=== PATIENT | male | born 1970 | race Caucasian/White ===

== ENCOUNTER 2017-09-13 13:04 | Emergency (ER) | payer MEDICAID, SELFPAY | END 2017-09-13 14:32 | disposition home or self-care (01) | PROVIDERS: Emergency Provider Nurse Practitioner; Visit Provider Nurse Practitioner | DX: J10.1 Influenza due to other identified influenza virus with other respiratory manifestations (principal); I10 Essential (primary) hypertension; K21.9 Gastro-esophageal reflux disease without esophagitis | CPT/HCPCS: 87804; 87880; 99201 ==

== ENCOUNTER → 2018-01-07 14:29 | Outpatient (CLI) | payer MEDICAID, SELFPAY ==
[2018-01-10 12:06] LABS: H. pylori Breath Test Positive (Negative)
== END ==
PROVIDERS: Visit Provider Physician Assistant
DX: R14.0 Abdominal distension (gaseous) (principal)
CPT/HCPCS: 83013

== ENCOUNTER → 2018-01-10 09:52 | Outpatient (REF) | payer MEDICAID, SELFPAY ==
[2018-01-10 13:56] LABS: Magnesium 1.8 mg/dL (1.4-2.2)
[2018-01-10 14:09] LABS: Alanine Aminotransferase 106 U/L (12-78); Albumin Level 3.5 gm/dL (3.4-5.0); Alkaline Phosphatase 74 U/L (46-116); Anion Gap 11.9 mEq/L (5-15); Aspartate Amino Transferase 38 U/L (15-37); Bilirubin,Total 0.6 mg/dL (0.2-1.0); Blood Urea Nitrogen 21 mg/dL (7-18); Calcium 9.2 mg/dL (8.5-10.1); Carbon Dioxide 32 mmol/L (21.0-32.0); Chloride 96 mmol/L (98-107); Chol/HDL Ratio 4.1 (1-3.5); Cholesterol 159 mg/dL (140-200); Creatinine,Serum 1.06 mg/dL (0.70-1.30); Estimated Glomerular Filt Rate 74 ml/min (>60); GFR (African American) 90 ML/MIN (>60); Globulin 3.5 gm/dl (1.3-3.2); HDL Cholesterol 39 mg/dL (27-67); LDL Cholesterol 94 mg/dL (0-130); Potassium 3.9 mmoL/L (3.5-5.1); Sodium 136 mmol/L (136-145); T4 (Thyroxine) 8.9 ug/dl (4.7-13.3); Thyroid Stimulating Hormone 1.64 uIU/ml (0.358-3.740); Triglycerides 130 mg/dL (30-200); VLDL Cholesterol 26 mg/dL (0-40)
[2018-01-10 14:20] LABS: Basophils # 0.1 K/mm3 (0-0.2); Basophils % 0.7 % (0.1-2.0); Eosinophils # 0.2 K/mm3 (0.0-0.4); Eosinophils % 1.6 % (0.1-12.0); Hematocrit 49.5 % (42.0-52.0); Hemoglobin 16.2 g/dL (14.1-18.0); Lymphocytes # 3.5 K/mm3 (0.7-4.5); Lymphocytes % 27.6 K/mm3 (10-50); Mean Corpuscular HGB Conc 32.8 g/dL (31.8-35.4); Mean Corpuscular Hemoglobin 28.3 pg (27.0-31.2); Mean Corpuscular Volume 86.4 fl (80-94); Monocytes # 0.7 K/mm3 (0.1-1.0); Monocytes % 5.9 % (1.7-9.3); Neutrophils # 8.1 K/mm3 (1.8-7.8); Neutrophils % 64.2 % (37.0-80.0); Platelet Count 257 K/mm3 (142-424); Red Blood Count 5.72 M/mm3 (4.60-6.20); Red Cell Distribution Width 12.2 % (11.5-17.5); White Blood Count 12.6 K/mm3 (4.8-10.8)
[2018-01-10 14:24] LABS: Glucose 403 mg/dL (74-106)
[2018-01-11 11:06] LABS: Vitamin D 25 Hydroxy 25.7 ng/mL (30.0-100.0)
== END ==
LOC: LAB 09:52
PROVIDERS: Visit Provider Physician Assistant
DX: R53.83 Other fatigue (principal); M79.606 Pain in leg, unspecified; R73.09 Other abnormal glucose
CPT/HCPCS: 80053; 80061; 82652; 83036; 83735; 84436; 84443; 85025

== ENCOUNTER → 2018-02-07 12:57 | Outpatient (CLI) | payer MEDICAID, SELFPAY | PROVIDERS: Family Provider Emergency Medicine; PCP Emergency Medicine; Visit Provider Physician Assistant | DX: E11.9 Type 2 diabetes mellitus without complications (principal) | CPT/HCPCS: 97802; G0108 ==

== ENCOUNTER → 2018-04-29 10:13 | Outpatient (CLI) | payer OTHER, MEDICAID, SELFPAY ==
--- NOTE | 2018-04-29 10:18 | XR_ITS ---
EXAM: XR lumbar spine min 4V HISTORY: ITS.REASON: low back pain ORDERING PHYSICIAN: SABRINA Sanchez PATIENT AGE: 47 years COMPARISON: 01/31/2016 FINDINGS: There is normal alignment. Mild spurring is present of the endplates at L1, L2, L4, and L5. No fracture or dislocation. No lytic or blastic change. There is mild chronic wedging of T12 and L1 unchanged. IMPRESSION: Chronic changes with mild endplate osteophytosis, no acute finding
--- NOTE | 2018-04-29 10:18 | XR_ITS ---
XR hip RT 2-3V w/pelvis HISTORY: ITS.REASON: right sciatic pain ORDERING PHYSICIAN: SABRINA Sanchez PATIENT AGE: 47 years COMPARISON: None FINDINGS: There is slight decrease in the joint space medially consistent mild osteoarthritis. No fracture or dislocation. No lytic or blastic change. IMPRESSION: Mild osteoarthritis of the right hip
== END ==
PROVIDERS: PCP Physician Assistant; Visit Provider Physician Assistant
DX: M54.5 Low back pain (principal)
CPT/HCPCS: 72110; 73502

== ENCOUNTER 2018-07-11 13:00 | Outpatient (RCR) | payer OTHER, SELFPAY ==
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
== END 2018-07-11 13:01 | disposition home or self-care (01) ==
LOC: PT 13:00
PROVIDERS: Family Provider Emergency Medicine; PCP Emergency Medicine; Visit Provider Physician Assistant
DX: M54.31 Sciatica, right side (principal)
CPT/HCPCS: 97010; 97012; 97014; 97035; 97110; 97163; 97164; G0283

== ENCOUNTER → 2018-07-31 10:46 | Outpatient (CLI) | payer MEDICAID, SELFPAY ==
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
== END ==
PROVIDERS: PCP Physician Assistant; Visit Provider Physician Assistant
DX: M54.2 Cervicalgia (principal)
CPT/HCPCS: 72050

== ENCOUNTER 2018-08-09 10:00 | Outpatient (RCR) | payer OTHER, MEDICAID, SELFPAY ==
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
== END 2018-08-09 10:05 | disposition home or self-care (01) ==
LOC: PT 10:00
PROVIDERS: Family Provider Emergency Medicine; PCP Physician Assistant; Visit Provider Physician Assistant
DX: M54.2 Cervicalgia (principal); M54.9 Dorsalgia, unspecified
CPT/HCPCS: 97010; 97012; 97014; 97035; 97110; 97163; G0283

== ENCOUNTER → 2019-09-08 13:33 | Outpatient (CLI) | payer OTHER, SELFPAY ==
[2019-09-08 14:05] LABS: Basophils # 0.1 K/mm3 (0-0.2); Basophils % 0.6 % (0.1-2.0); Eosinophils # 0.3 K/mm3 (0.0-0.4); Eosinophils % 2.2 % (0.1-12.0); Hematocrit 50.7 % (42.0-52.0); Hemoglobin 16.5 g/dL (14.1-18.0); Lymphocytes # 3.8 K/mm3 (0.7-4.5); Lymphocytes % 28.9 % (10-50); Mean Corpuscular HGB Conc 32.5 g/dL (31.8-35.4); Mean Corpuscular Hemoglobin 27.6 pg (27.0-31.2); Mean Corpuscular Volume 84.8 fl (80-94); Mean Platelet Volume 8.5 fl (7.4-10.4); Monocytes % 7.5 % (1.7-9.3); Neutrophils # 8.1 K/mm3 (1.8-7.8); Neutrophils % 60.9 % (37.0-80.0); Platelet Count 296 K/mm3 (142-424); Red Blood Count 5.98 M/mm3 (4.60-6.20); White Blood Count 13.2 K/mm3 (4.8-10.8)
[2019-09-08 14:26] LABS: Albumin Level 3.7 gm/dL (3.4-5.0); Anion Gap 13.9 mEq/L (5-15); Blood Urea Nitrogen 20 mg/dL (7-18); Calcium 8.9 mg/dL (8.5-10.1); Carbon Dioxide 29 mmol/L (21.0-32.0); Chloride 100 mmol/L (98-107); Creatinine,Serum 0.99 mg/dL (0.70-1.30); Estimated Glomerular Filt Rate 80 ml/min (>60); GFR (African American) 97 ML/MIN (>60); Glucose 176 mg/dL (74-106); Potassium 3.9 mmoL/L (3.5-5.1); Sodium 139 mmol/L (136-145)
[2019-09-08 15:03] LABS: Alanine Aminotransferase 52 U/L (12-78); Alkaline Phosphatase 66 U/L (46-116); Aspartate Amino Transferase 19 U/L (15-37); Bilirubin,Total 0.4 mg/dL (0.2-1.0); Chol/HDL Ratio 2.7 (1-3.5); Cholesterol 118 mg/dL (140-200); Globulin 3.6 gm/dl (1.3-3.2); HDL Cholesterol 43 mg/dL (27-67); LDL Cholesterol 55 mg/dL (0-130); Thyroid Stimulating Hormone 0.95 uIU/ml (0.358-3.740); Total Protein,Serum 7.3 gm/dL (6.4-8.2); Triglycerides 98 mg/dL (30-200); VLDL Cholesterol 20 mg/dL (0-40)
[2019-09-08 15:57] LABS: Hemoglobin A1C 7.5 % (0.0-7.0)
[2019-09-09 16:46] LABS: Vitamin D 25 Hydroxy 46.7 ng/mL (30.0-100.0)
[2019-09-09 16:47] LABS: Microalbumin, Urine 9.3 ug/mL (Not Estab.)
== END ==
PROVIDERS: Visit Provider Physician Assistant
DX: E11.9 Type 2 diabetes mellitus without complications (principal); E55.9 Vitamin D deficiency, unspecified; Z79.84 Long term (current) use of oral hypoglycemic drugs
CPT/HCPCS: 80053; 80061; 82043; 82652; 83036; 84436; 84443; 85025

== ENCOUNTER → 2019-11-27 19:58 | Outpatient (CLI) | payer OTHER, SELFPAY | PROVIDERS: PCP Physician Assistant; Visit Provider Physician Assistant | DX: G47.33 Obstructive sleep apnea (adult) (pediatric) (principal); I10 Essential (primary) hypertension; R40.0 Somnolence; G25.81 Restless legs syndrome | CPT/HCPCS: 95810 ==

== ENCOUNTER → 2019-12-09 09:56 | Outpatient (CLI) | payer OTHER, SELFPAY ==
[2019-12-09 12:54] LABS: Ferritin 165 ng/ml (17.9-464)
== END ==
PROVIDERS: Visit Provider Nurse Practitioner Family
DX: E83.10 Disorder of iron metabolism, unspecified (principal)
CPT/HCPCS: 36415; 82728

== ENCOUNTER 2020-08-03 18:11 | Emergency (ER) | payer OTHER, SELFPAY ==
[2020-08-03 18:20] VITALS: BP 143/91; PULSE 88; RESP 18; TEMP 36.8; O2SAT 96; BMI 39.5
--- NOTE | 2020-08-03 19:06 | HMH.EDUTC ---
[facility] [place] Clinical Impression: Encounter for laboratory testing for COVID-19 virus Disposition: Home, Self-Care Condition on Discharge: Good Instructions: Preventing the Spread of Coronavirus Discharge Instructions Additional Instructions: *Monitor Temp, Over the counter Motrin or Tylenol as directed/as needed Tylenol every 4 hours and Motrin every 6 hours (as long as your family doctor has told you that you can take it) for fever or pain. and straight to ER if unable to lower temp less than 101.0 after medication given *Warm salt water gargles may help to soothe the throat *Throat Lozenges *Warm fluids like tea with honey may help to soothe the throat *Sleep elevated *Humidifier/Vaporizer Follow up IMMEDIATELY for new or worsening symptoms or no Noticeable improvement over the next 48-72 hours. 911 for difficulty breathing or swallowing You was tested for today for COVID19 your test result should be back in the next 24-48 hours, you may call to the [facility] tomorrow to see if your test results are back and the result [phone] You was given a handout with instructions for Self Quarantine and Self isolation for while you wait on test results and what to do if they are positive If you are positive the Health Dept will be contacting you also Referrals: Nancy Mendes PA [Primary Care Provider] - As needed Forms: Work/School Release Time of Disposition: 19:08 Medical Decision Making - Hair Inquiry Pt receiving controlled substance: No Hair was queried for this patient: No Vital Signs: 08/03/20 18:20 Temperature 98.2 F Temperature Source Oral Pulse Rate [Left] 88 Respiratory Rate 18 Blood Pressure [Right Arm] 143/91 H Blood Pressure Mean [Right Arm] 108 Blood Pressure Source [Right Arm] Automatic Cuff Blood Pressure Position [Right Arm] Sitting 02 Sat by Pulse Oximetry 96 Oxygen Delivery Method Room Air Orders (Tests/Meds): ORDERS Category Date Time Status Covid-19 Nasal PCR Sendout Tho Stat Lab 08/03/20 18:50 Received [facility] [place] HPI - General Stated complaint: COVID TEST Time Seen by Provider: 08/03/20 19:06 Source of Information: Patient Limitations: No Limitations Description of Symptoms (Recalled from Triage Doc. by RN): Covid test no exposure no symptoms HEENT Symptoms (Recalled from RN notes): No Resp Symptoms (Recalled from RN notes): No Skin Symptoms (Recalled from RN notes): No MS Symptoms (Recalled from RN notes): No Functional Status (Recalled from RN notes): stable - History of Present Illness Provider Complaint: Patient states that his daughters boyfriend recently tested positive for COVID but he hasnt been around the boyfriend but has been around the daughter States that he has had a cough but sometimes his allergies acts up and he has a cough States that he come in to get tested to see if may have COVID - Related Data Previous Rx's Medication Instructions Recorded aspirin 81 mg tablet,delayed 81 mg PO DAILY #90 tab 09/08/19 release blood sugar diagnostic See Rx Instructions .ROUTE 09/08/19 .COMPLEX #50 unspecified blood-glucose meter See Rx Instructions .ROUTE 09/08/19 .COMPLEX #1 unspecified atorvastatin 10 mg tablet See Rx Instructions .ROUTE 12/08/19 .COMPLEX #90 unspecified pramipexole 0.125 mg tablet See Rx Instructions .ROUTE 12/08/19 .COMPLEX #90 unspecified ergocalciferol (vitamin D2) 1,250 See Rx Instructions .ROUTE 02/24/20 mcg (50,000 unit) capsule .COMPLEX #14 unspecified lisinopril 20 See Rx Instructions .ROUTE 05/05/20 mg-hydrochlorothiazide 25 mg tablet .COMPLEX #90 unspecified glipizide 10 mg tablet, extended See Rx Instructions .ROUTE 05/19/20 release 24 hr .COMPLEX #90 unspecified omeprazole 40 mg capsule,delayed See Rx Instructions .ROUTE 05/19/20 release .COMPLEX #90 unspecified Allergies Allergy/AdvReac Type Severity Reaction Status Date / Time Penicillins [PENICILLINS] Allergy Unknown Verified 12/09/19 08:57
[2020-08-03 19:27] VITALS: BP 143/91; PULSE 88; RESP 18; TEMP 36.8; O2SAT 96
[2020-08-05 16:55] LABS: Covid-19 Nasal PCR Sendout Lex Positive
--- NOTE | 2020-08-05 17:10 | PC.NURSE ---
PATIENT NOTIFIED OF POSITIVE COVID TEST AT THIS TIME
== END 2020-08-03 19:27 | disposition home or self-care (01) ==
PROVIDERS: Emergency Provider Nurse Practitioner; PCP Physician Assistant
DX: U07.1 COVID-19 (principal); E11.9 Type 2 diabetes mellitus without complications; I10 Essential (primary) hypertension; Z88.0 Allergy status to penicillin; Z79.899 Other long term (current) drug therapy
CPT/HCPCS: 99201; U0004

== ENCOUNTER → 2021-02-22 13:51 | Outpatient (CLI) | payer MEDICAID, SELFPAY | PROVIDERS: Visit Provider Emergency Medicine | DX: N39.0 Urinary tract infection, site not specified (principal) | CPT/HCPCS: 87086 ==

== ENCOUNTER → 2021-06-07 12:07 | Outpatient (CLI) | payer MEDICAID, SELFPAY | PROVIDERS: PCP Physician Assistant; Visit Provider Nurse Practitioner | DX: Z20.822 Contact with and (suspected) exposure to COVID-19 (principal) | CPT/HCPCS: C9803; U0003; U0005 ==

== ENCOUNTER → 2021-07-27 17:12 | Outpatient (CLI) | payer MEDICAID, SELFPAY ==
[2021-07-27 17:22] LABS: Basophils # 0.1 K/mm3 (0-0.2); Basophils % 0.9 % (0.1-2.0); Eosinophils # 0.2 K/mm3 (0.0-0.4); Eosinophils % 1.9 % (0.1-12.0); Hematocrit 53.3 % (42.0-52.0); Hemoglobin 17.7 g/dL (14.1-18.0); Lymphocytes # 3.2 K/mm3 (0.7-4.5); Lymphocytes % 27.1 % (10-50); Mean Corpuscular HGB Conc 33.1 g/dL (31.8-35.4); Mean Corpuscular Hemoglobin 28.3 pg (27.0-31.2); Mean Corpuscular Volume 85.5 fl (80-94); Mean Platelet Volume 9.2 fl (7.4-10.4); Monocytes # 0.8 K/mm3 (0.1-1.0); Monocytes % 6.9 % (1.7-9.3); Neutrophils # 7.4 K/mm3 (1.8-7.8); Neutrophils % 63.1 % (37.0-80.0); Platelet Count 304 K/mm3 (142-424); Red Blood Count 6.23 M/mm3 (4.60-6.20); Red Cell Distribution Width 12.4 % (11.5-17.5); White Blood Count 11.8 K/mm3 (4.8-10.8)
[2021-07-27 17:39] LABS: Alanine Aminotransferase 53 U/L (12-78); Albumin Level 4.5 g/dl (3.5-5.0); Albumin/Globulin Ratio 1.6 (1.1-1.8); Alkaline Phosphatase 80 U/L (38-126); Anion Gap 13.3 mEq/L (5-15); Aspartate Amino Transferase 33 U/L (17-59); Bilirubin,Total 0.8 mg/dl (0.2-1.3); Blood Urea Nitrogen 16 mg/dl (9-20); Calcium 9.6 mg/dl (8.4-10.2); Carbon Dioxide 33 mmol/L (22.0-30.0); Chloride 97 mmol/L (98-107); Chol/HDL Ratio 3.5 (1-3.5); Cholesterol 157 mg/dl (140-200); Estimated Glomerular Filt Rate 102 ml/min (>60); GFR (African American) 123 ML/MIN (>60); Globulin 2.9 g/dL (1.3-3.2); Glucose 236 mg/dl (74-100); HDL Cholesterol 45 mg/dl (40-60); Potassium 4.3 mmoL/L (3.5-5.1); Sodium 139 mmol/L (136-145); Total Protein,Serum 7.4 g/dl (6.3-8.2); Triglycerides 112 mg/dl (30-150); VLDL Cholesterol 22 mg/dL (0-40)
[2021-07-27 17:43] LABS: Hemoglobin A1C 8.3 % (4.0-6.0)
[2021-07-27 17:51] LABS: Direct LDL Cholesterol 92.08 mg/dL (100-129)
[2021-07-27 17:56] LABS: 25-OH Vitamin D, Total 33.1 ng/mL (30-100)
[2021-07-27 18:11] LABS: Prostate Specific Ag Screen 1.1 ng/ml (0.0-4.0); Thyroid Stimulating Hormone 1.03 uIU/mL (0.465-4.68)
[2021-07-27 18:30] LABS: Vitamin B12 730 pg/mL (239-931)
== END ==
PROVIDERS: Visit Provider Physician Assistant
DX: E11.9 Type 2 diabetes mellitus without complications (principal); E66.9 Obesity, unspecified; Z68.39 Body mass index [BMI] 39.0-39.9, adult; Z79.84 Long term (current) use of oral hypoglycemic drugs; Z12.5 Encounter for screening for malignant neoplasm of prostate
CPT/HCPCS: 80053; 80061; 82306; 82607; 83036; 84443; 85025; G0103

== ENCOUNTER → 2021-10-11 12:06 | Outpatient (CLI) | payer MEDICAID, SELFPAY | PROVIDERS: Visit Provider Podiatrist | DX: L60.3 Nail dystrophy (principal) | CPT/HCPCS: 87102; 87206; 87220 ==

== ENCOUNTER 2022-03-13 11:50 | Emergency (ER) | payer MEDICAID, SELFPAY ==
[2022-03-13 11:55] VITALS: BP 141/92; PULSE 83; RESP 19; TEMP 36.8; O2SAT 98; BMI 36.6
--- NOTE | 2022-03-13 12:03 | XR_ITS ---
FINAL REPORT CLINICAL HISTORY: left shoulder pain FINDINGS: LEFT SHOULDER Three views demonstrate no acute fracture or dislocation. There are mild degenerative changes of the acromioclavicular and glenohumeral joints. The visualized bony structures are well aligned. There are small loose bodies along the inferior aspect of the glenohumeral joint. IMPRESSION: Mild degenerative change with no acute bony abnormality Reviewed, Interpreted and Dictated by William Lorenzo III, MD Transcribed by Veronica Contreras Authenticated and [facility]
--- NOTE | 2022-03-13 12:31 | HMH.EDUTC ---
[facility] [place] Clinical Impression: Shoulder pain Qualifiers: Chronicity: unspecified Laterality: left Qualified Code(s): M25.512 - Pain in left shoulder Disposition: Home, Self-Care Condition on Discharge: Good Instructions: Soothing the Pain of Bursitis and Tendinopathy, Bursitis, DI for Bursitis, DI for Shoulder Pain Additional Instructions: *RICE, Rest the extremity, Ice 15-20 minutes 3-4 times daily, Compress- wear the sofi wrap as discussed as much as possible to help reduce swelling and pain, Elevate the extremity when at rest *Sling is for support and help control swelling, use it except in the shower but be sure to remove and move arm around. Be sure that is not to tight but not to loose either *Elevate when resting *Naproxin every 12 hours as needed for pain an inflammation. If need something more can take Tylenol in between doses of Ibuprofen to help Immediately follow up with your family doctor for new or worsening of symptoms, or no noticeable improvement over the next 3-5 days You can call back to the [facility] later today for the official reading of your xray Straight to ER If any life threatening symptoms Prescriptions: methocarbamoL [Methocarbamol 500mg Tablet] 500 mg PO BID PRN #10 tab PRN Reason: Muscle Spasm Transmission Status: Received by [facility] Naproxen [Naproxen 500mg tab] 500 mg PO BID 5 Days #10 tab Transmission Status: Received by [facility] Referrals: Nnacy Mendes PA [Primary Care Provider] - As needed Time of Disposition: 20:27 Medical Decision Making - Hair Inquiry Pt receiving controlled substance: No Hair was queried for this patient: No Vital Signs: 03/13/22 11:55 03/13/22 13:15 Temperature 98.3 F 98.3 F Temperature Source Oral Pulse Rate 83 Pulse Rate [Right Brachial] 83 Respiratory Rate 19 19 Blood Pressure 141/92 H Blood Pressure [Right Arm] 141/92 H Blood Pressure Mean [Right Arm] 108 Blood Pressure Source [Right Arm] Automatic Cuff Blood Pressure Position [Right Arm] Sitting 02 Sat by Pulse Oximetry 98 Oxygen Delivery Method Room Air - Radiology Data #1 Image(s): Shoulder Image Reviewed: Yes I reviewed the patient's radiology image Preliminary Findings: No Fracture Seen Medical Decision Narrative: Medication discussed with pharmacy [facility] [place] HPI - General Stated complaint: left arm pain, no accident Time Seen by Provider: 03/13/22 12:31 Mode of Arrival: Ambulatory Source of Information: Patient Limitations: No Limitations Description of Symptoms (Recalled from Triage Doc. by RN): PATIENT C/O LEFT SHOULDER PAIN THAT STARTED AFTER HE WOKE UP YESTERDAY. NO KNOWN INJURY HEENT Symptoms (Recalled from RN notes): No Resp Symptoms (Recalled from RN notes): No Skin Symptoms (Recalled from RN notes): No MS Symptoms (Recalled from RN notes): Yes Functional Status (Recalled from RN notes): WNL - History of Present Illness Provider Complaint: Patient states that he has been having pain in his left shoulder area that hurts worse when he tries to raise it up since he woke up yesterday States that he feels like he may have slept on it wrong or something States that if he holds it down to his side it doesnt hurt but when he goes to raise it has pain in his shoulder joint area Denies known injury denies Chest pain - Related Data Home Medications Medication Instructions Recorded Confirmed Blood Sugar Diagnostic [Assure See Rx Instructions .ROUTE .COMPLEX 03/18/21 01/11/22 [place] Test Strip] Blood-Glucose Meter [Blood Glucose See Rx Instructions .ROUTE .COMPLEX 03/18/21 01/11/22 Meter] Previous Rx's Medication Instructions Recorded aspirin 81 mg tablet,delayed See Rx Instructions .ROUTE 07/27/21 release .COMPLEX #90 tab atorvastatin 10 mg tablet See Rx Instructions .ROUTE 07/27/21 .COMPLEX #90 tab gabapentin 100 mg capsule 100 mg PO BID #60 cap 07/27/21 glipizide 10 mg tablet, extended See Rx Instructions .R
[2022-03-13 13:15] VITALS: BP 141/92; PULSE 83; RESP 19; TEMP 36.8; O2SAT 98
== END 2022-03-13 13:24 | disposition home or self-care (01) ==
PROVIDERS: Emergency Provider Nurse Practitioner; PCP Physician Assistant
DX: M25.512 Pain in left shoulder (principal); M79.602 Pain in left arm; I10 Essential (primary) hypertension; E11.9 Type 2 diabetes mellitus without complications; K21.9 Gastro-esophageal reflux disease without esophagitis; M54.41 Lumbago with sciatica, right side; G47.33 Obstructive sleep apnea (adult) (pediatric); E55.9 Vitamin D deficiency, unspecified; G25.81 Restless legs syndrome; Z79.1 Long term (current) use of non-steroidal anti-inflammatories (NSAID); Z79.82 Long term (current) use of aspirin; Z79.899 Other long term (current) drug therapy; Z88.0 Allergy status to penicillin; Z82.49 Family history of ischemic heart disease and other diseases of the circulatory system
CPT/HCPCS: 73030; 99213; G0463

== ENCOUNTER → 2022-05-15 06:48 | Outpatient (CLI) | payer MEDICAID, SELFPAY ==
[2022-05-15 19:40] LABS: Basophils # 0.1 K/mm3 (0-0.2); Eosinophils # 0.2 K/mm3 (0.0-0.4); Eosinophils % 1.4 % (0.1-12.0); Hematocrit 51.5 % (42.0-52.0); Hemoglobin 16.4 g/dL (14.1-18.0); Lymphocytes # 3.6 K/mm3 (0.7-4.5); Lymphocytes % 27.2 % (10-50); Mean Corpuscular HGB Conc 31.8 g/dL (31.8-35.4); Mean Corpuscular Hemoglobin 27.7 pg (27.0-31.2); Mean Platelet Volume 10.4 fl (7.4-10.4); Monocytes % 7.3 % (1.7-9.3); Neutrophils # 8.3 K/mm3 (1.8-7.8); Neutrophils % 63.1 % (37.0-80.0); Platelet Count 346 K/mm3 (142-424); Red Blood Count 5.92 M/mm3 (4.60-6.20); Red Cell Distribution Width 13.4 % (11.5-17.5); White Blood Count 13.1 K/mm3 (4.8-10.8)
[2022-05-15 20:44] LABS: Alanine Aminotransferase 58 U/L (12-78); Albumin Level 4.2 g/dl (3.5-5.0); Albumin/Globulin Ratio 1.4 (1.1-1.8); Alkaline Phosphatase 85 U/L (38-126); Anion Gap 15.8 mEq/L (5-15); Aspartate Amino Transferase 34 U/L (17-59); Bilirubin,Total 0.6 mg/dl (0.2-1.3); Blood Urea Nitrogen 16 mg/dl (9-20); Calcium 9.5 mg/dl (8.4-10.2); Carbon Dioxide 25 mmol/L (22.0-30.0); Chloride 98 mmol/L (98-107); Chol/HDL Ratio 3.1 (1-3.5); Cholesterol 138 mg/dl (140-200); Estimated Glomerular Filt Rate 118 ml/min (>60); GFR (African American) 143 ML/MIN (>60); Glucose 227 mg/dl (74-100); HDL Cholesterol 44 mg/dl (40-60); Potassium 3.8 mmoL/L (3.5-5.1); Sodium 135 mmol/L (136-145); Total Protein,Serum 7.2 g/dl (6.3-8.2); Triglycerides 104 mg/dl (30-150); VLDL Cholesterol 21 mg/dL (0-40)
[2022-05-15 21:01] LABS: 25-OH Vitamin D, Total 42.5 ng/mL (30-100)
[2022-05-15 21:15] LABS: Thyroid Stimulating Hormone 0.75 uIU/mL (0.465-4.68)
[2022-05-15 23:05] LABS: Hemoglobin A1C 9.2 % (4.0-6.0)
[2022-05-17 13:53] LABS: Direct LDL Cholesterol 72 mg/dL (100-129)
== END ==
PROVIDERS: PCP Physician Assistant; Visit Provider Physician Assistant
DX: E11.9 Type 2 diabetes mellitus without complications (principal); I10 Essential (primary) hypertension; E78.5 Hyperlipidemia, unspecified; E66.9 Obesity, unspecified; Z68.39 Body mass index [BMI] 39.0-39.9, adult; Z79.84 Long term (current) use of oral hypoglycemic drugs; Z79.899 Other long term (current) drug therapy
CPT/HCPCS: 80053; 80061; 82043; 82306; 83036; 84443; 85025

== ENCOUNTER → 2022-10-11 09:00 | Outpatient (CLI) | payer MEDICAID, SELFPAY ==
[2022-10-11 14:59] LABS: Basophils # 0.2 K/mm3 (0-0.2); Basophils % 1.3 % (0.1-2.0); Eosinophils # 0.3 K/mm3 (0.0-0.4); Eosinophils % 2.3 % (0.1-12.0); Hematocrit 51.6 % (42.0-52.0); Hemoglobin 17.2 g/dL (14.1-18.0); Lymphocytes # 3.8 K/mm3 (0.7-4.5); Lymphocytes % 31.3 % (10-50); Mean Corpuscular HGB Conc 33.4 g/dL (31.8-35.4); Mean Corpuscular Hemoglobin 27.7 pg (27.0-31.2); Mean Platelet Volume 9.6 fl (7.4-10.4); Monocytes % 8.5 % (1.7-9.3); Neutrophils # 6.9 K/mm3 (1.8-7.8); Neutrophils % 56.6 % (37.0-80.0); Platelet Count 286 K/mm3 (142-424); Red Blood Count 6.22 M/mm3 (4.60-6.20); Red Cell Distribution Width 13.1 % (11.5-17.5); White Blood Count 12.2 K/mm3 (4.8-10.8)
[2022-10-11 15:04] LABS: Alanine Aminotransferase 62 U/L (12-78); Albumin Level 4.4 g/dl (3.5-5.0); Albumin/Globulin Ratio 1.4 (1.1-1.8); Alkaline Phosphatase 65 U/L (38-126); Anion Gap 13.3 mEq/L (5-15); Aspartate Amino Transferase 35 U/L (17-59); Bilirubin,Total 0.8 mg/dl (0.2-1.3); Blood Urea Nitrogen 18 mg/dl (9-20); Calcium 9.3 mg/dl (8.4-10.2); Carbon Dioxide 31 mmol/L (22.0-30.0); Chloride 98 mmol/L (98-107); Chol/HDL Ratio 3.6 (1-3.5); Cholesterol 141 mg/dl (140-200); Estimated Glomerular Filt Rate 101 ml/min (>60); GFR (African American) 122 ML/MIN (>60); Globulin 3.1 g/dL (1.3-3.2); Glucose 158 mg/dl (74-100); HDL Cholesterol 39 mg/dl (40-60); Potassium 4.3 mmoL/L (3.5-5.1); Sodium 138 mmol/L (136-145); Total Protein,Serum 7.5 g/dl (6.3-8.2); Triglycerides 112 mg/dl (30-150); VLDL Cholesterol 22 mg/dL (0-40)
[2022-10-11 15:16] LABS: Direct LDL Cholesterol 80.39 mg/dL (100-129)
[2022-10-11 15:21] LABS: 25-OH Vitamin D, Total 23.5 ng/mL (30-100)
[2022-10-11 15:25] LABS: Hemoglobin A1C 10.3 % (4.0-6.0)
[2022-10-11 15:36] LABS: Prostate Specific Ag Screen 1.4 ng/ml (0.0-4.0); Thyroid Stimulating Hormone 1.45 uIU/mL (0.465-4.68)
== END ==
PROVIDERS: PCP Physician Assistant; Visit Provider Physician Assistant
DX: E11.9 Type 2 diabetes mellitus without complications (principal); E55.9 Vitamin D deficiency, unspecified; Z79.4 Long term (current) use of insulin; Z79.899 Other long term (current) drug therapy; Z12.5 Encounter for screening for malignant neoplasm of prostate
CPT/HCPCS: 80053; 80061; 82306; 83036; 84443; 85025; G0103

== ENCOUNTER 2022-10-18 17:56 | Emergency (ER) | payer MEDICAID, SELFPAY ==
[2022-10-18 18:00] VITALS: BP 138/91; PULSE 93; RESP 21; TEMP 36.7; O2SAT 97; BMI 37.5
--- NOTE | 2022-10-18 18:40 | EXP.UTC ---
Discharge Plan Disposition Patient Disposition: Home, Self-Care Condition: Good Prescriptions Prescriptions: New benzonatate 100 mg capsule 100 mg PO TID PRN (Reason: cough) Qty: 15 0RF guaifenesin [Mucinex] 600 mg tablet extended release 12hr 600 - 1,200 mg PO BID PRN (Reason: cough) Qty: 20 0RF azithromycin [Zithromax Z-Urbano] 250 mg tablet See Rx Instructions .ROUTE .COMPLEX 5 Days Qty: 6 0RF Rx Instructions: For 250 mg dose pack: take 500 mg today (day 1), then 250 mg for 4 days (days 2-5) albuterol sulfate [Proventil HFA] 90 mcg/actuation HFA aerosol inhaler 1 inh inhalation Q6H PRN (Reason: shortness of breath or wheezing) Qty: 8.5 0RF No Action atorvastatin 10 mg tablet See Rx Instructions .ROUTE .COMPLEX Qty: 90 3RF Dose Instruction: TAKE 1 TABLET BY MOUTH AT BEDTIME Rx Instructions: TAKE 1 TABLET BY MOUTH AT BEDTIME aspirin 81 mg tablet,delayed release (DR/EC) See Rx Instructions .ROUTE .COMPLEX Qty: 90 3RF Dose Instruction: TAKE 1 TABLET BY MOUTH ONCE DAILY Rx Instructions: TAKE 1 TABLET BY MOUTH ONCE DAILY lisinopril-hydrochlorothiazide 20-25 mg tablet See Rx Instructions .ROUTE .COMPLEX Qty: 90 3RF Dose Instruction: TAKE 1 TABLET BY MOUTH ONCE DAILY FOR BLOOD PRESSURE Rx Instructions: TAKE 1 TABLET BY MOUTH ONCE DAILY FOR BLOOD PRESSURE glipizide 10 mg tablet extended release 24hr See Rx Instructions .ROUTE .COMPLEX Qty: 90 3RF Dose Instruction: TAKE ONE TABLET BY MOUTH EVERY DAY Rx Instructions: TAKE ONE TABLET BY MOUTH EVERY DAY omeprazole 40 mg capsule,delayed release(DR/EC) 40 mg PO DAILY Qty: 90 3RF Rx Instructions: TAKE 1 CAPSULE BY MOUTH ONCE DAILY urea 40 % cream 1 applic TP BID Qty: 60 3RF Rx Instructions: Rub in thoroughly to heels twice daily gabapentin [Neurontin] 300 mg capsule 300 mg PO HS Qty: 30 2RF Tradjenta 5 mg tablet 5 mg PO DAILY Qty: 90 3RF Farxiga 10 mg tablet 10 mg PO DAILY Qty: 90 3RF ergocalciferol (vitamin D2) 1,250 mcg (50,000 unit) capsule 1,250 mcg PO WEEKLY Qty: 14 3RF cholecalciferol (vitamin D3) 50 mcg (2,000 unit) capsule 50 mcg PO DAILY Qty: 90 3RF (DME) pen needle, diabetic [Comfort EZ Pen [place]] 31 gauge x 1/4 needle See Rx Instructions .Route Qty: 50 2RF Rx Instructions: As directed [place] 100/33 100 unit-33 mcg/mL insulin pen 15 unit SQ DAILY Qty: 15 2RF (DME) blood-glucose meter 1 EACH misc See Rx Instructions .Route .COMPLEX Rx Instructions: DIRECTED (DME) blood sugar diagnostic 1 EACH strip See Rx Instructions .Route .COMPLEX Rx Instructions: USE DIRECTED TO TEST BLOOD SUGAR Referrals Follow up/Referrals: Nancy Mendes PA [Primary Care Provider] - See instructions Activity Restrictions/Add. Instructions Additional Instructions/Restrictions: Start antibiotic today. Be sure to complete entire prescription even if feeling better Monitor temp. Tylenol every 4 hours as needed and / or ibuprofen every 6 hours as needed ( As long as your primary care physician has told you that it ok to take both. For fever/aches/pains ER if no less than 101 despite Tylenol or Motrin Humidifier/vaporizer or hot steamy shower Inhaler every 4-6 hours as needed like we discussed. If unsure how to use it, ask pharmacist to demonstrate how. Should help open airways and improve cough, wheezing, and shortness of breath Mucinex during the day for your cough and cough suppressant only at night. Be sure to drink lots of water. *Tessalon Perles will not cause drowsiness but use at bedtime to help stop cough so that you may get some rest. Follow up IMMEDIATELY for new or worsening of symptoms OR no noticeable improvement over the next 48-72 hours. 911 immediately for any life threatening symptoms such as chest pain or difficulty breathing Clinical Impr
[2022-10-18 18:55] VITALS: BP 138/91; PULSE 93; RESP 21; TEMP 36.7; O2SAT 97
== END 2022-10-18 18:58 | disposition home or self-care (01) ==
PROVIDERS: Emergency Provider Nurse Practitioner; PCP Physician Assistant
DX: J40 Bronchitis, not specified as acute or chronic (principal); J32.9 Chronic sinusitis, unspecified
CPT/HCPCS: 99212; 99214; G0463

== ENCOUNTER 2024-02-29 13:03 | Outpatient (CLI) | payer MEDICAID, SELFPAY ==
[2024-02-29 14:02] LABS: Basophils # 0.1 K/mm3 (0-0.2); Basophils % 1.2 % (0.1-2.0); Eosinophils # 0.2 K/mm3 (0.0-0.4); Eosinophils % 2.2 % (0.1-12.0); Hematocrit 51.7 % (42.0-52.0); Hemoglobin 17.3 g/dL (14.1-18.0); Lymphocytes # 3.7 K/mm3 (0.7-4.5); Lymphocytes % 34.5 % (10-50); Mean Corpuscular HGB Conc 33.4 g/dL (31.8-35.4); Mean Corpuscular Hemoglobin 28.2 pg (27.0-31.2); Mean Corpuscular Volume 84.3 fl (80-94); Mean Platelet Volume 9.1 fl (7.4-10.4); Monocytes # 0.8 K/mm3 (0.1-1.0); Monocytes % 7.4 % (1.7-9.3); Neutrophils # 5.9 K/mm3 (1.8-7.8); Neutrophils % 54.7 % (37.0-80.0); Platelet Count 236 K/mm3 (142-424); Red Blood Count 6.14 M/mm3 (4.60-6.20); Red Cell Distribution Width 13.7 % (11.5-17.5); White Blood Count 10.8 K/mm3 (4.8-10.8)
[2024-02-29 14:37] LABS: Alanine Aminotransferase 83 U/L (12-78); Albumin Level 4.3 g/dl (3.5-5.0); Albumin/Globulin Ratio 1.4 (1.1-1.8); Alkaline Phosphatase 59 U/L (38-126); Anion Gap 12.3 mEq/L (5-15); Aspartate Amino Transferase 45 U/L (17-59); Bilirubin,Total 0.8 mg/dl (0.2-1.3); Blood Urea Nitrogen 19 mg/dl (9-20); Calcium 10.1 mg/dl (8.4-10.2); Carbon Dioxide 29 mmol/L (22.0-30.0); Chloride 98 mmol/L (98-107); Chol/HDL Ratio 3.6 (1-3.5); Cholesterol 167 mg/dl (140-200); Estimated Glomerular Filt Rate 100 ml/min (>60); GFR (African American) 121 ML/MIN (>60); Glucose 191 mg/dl (74-100); HDL Cholesterol 47 mg/dl (40-60); Potassium 4.3 mmoL/L (3.5-5.1); Sodium 135 mmol/L (136-145); Total Protein,Serum 7.3 g/dl (6.3-8.2); Triglycerides 106 mg/dl (30-150); VLDL Cholesterol 21 mg/dL (0-40)
[2024-02-29 14:48] LABS: Direct LDL Cholesterol 93.73 mg/dL (100-129)
[2024-02-29 15:06] LABS: Prostate Specific Ag Screen 1.2 ng/ml (0.0-4.0)
[2024-02-29 15:15] LABS: Hemoglobin A1C 10.1 % (4.0-6.0)
== END 2024-02-29 23:59 | disposition home or self-care (01) ==
LOC: LAB 13:03
PROVIDERS: PCP Physician Assistant; Visit Provider Physician Assistant
DX: Z12.5 Encounter for screening for malignant neoplasm of prostate (principal); E11.9 Type 2 diabetes mellitus without complications; Z79.84 Long term (current) use of oral hypoglycemic drugs; Z79.85 Long-term (current) use of injectable non-insulin antidiabetic drugs; R79.89 Other specified abnormal findings of blood chemistry; I10 Essential (primary) hypertension; E55.9 Vitamin D deficiency, unspecified; E66.9 Obesity, unspecified; Z68.38 Body mass index [BMI] 38.0-38.9, adult
CPT/HCPCS: 80050; 80053; 80061; 82306; 83036; 84443; 85025; G0103

== ENCOUNTER 2024-03-06 11:06 | Emergency (ER) | payer MEDICAID, SELFPAY ==
[2024-03-06 11:20] VITALS: BP 142/89; PULSE 84; RESP 18; TEMP 37.4; O2SAT 96; BMI 38.7
--- NOTE | 2024-03-06 11:25 | XR_ITS ---
FINAL REPORT CLINICAL HISTORY: FELL ON IT WHILE MOWING COMPARISON: 01/11/2018 FINDINGS: Right shoulder Three views were obtained. There is no acute fracture or dislocation. There are mild degenerative changes of the AC and glenohumeral joints. Calcification is noted adjacent to the humeral head, may represent calcific tendinitis. IMPRESSION: Findings may represent calcific tendinitis. Degenerative changes as above. Reviewed, Interpreted and Dictated by William Lorenzo III, MD Transcribed by Grace Nuñez Authenticated and [facility]
--- NOTE | 2024-03-06 11:42 | ED_ITS ---
Discharge Plan Disposition Patient Disposition: Home, Self-Care Condition: Good Prescriptions Prescriptions: New ibuprofen 800 mg tablet 800 mg PO Q8H PRN (Reason: pain) Qty: 30 0RF Rx Instructions: May start at 8:30 pm 03/06/24. No Action Ozempic 0.25 mg or 0.5 mg (2 mg/3 mL) pen injector 0.25 mg SQ WEEKLY Qty: 3 2RF Rx Instructions: for 4 weeks gabapentin 400 mg capsule 400 mg PO BID Qty: 60 2RF (DME) pen needle, diabetic [Comfort EZ Pen [place]] 31 gauge x 1/4 needle See Rx Instructions .Route Qty: 50 2RF Rx Instructions: As directed atorvastatin 10 mg tablet See Rx Instructions .ROUTE .COMPLEX Qty: 90 1RF Dose Instruction: TAKE 1 TABLET BY MOUTH AT BEDTIME Rx Instructions: TAKE 1 TABLET BY MOUTH AT BEDTIME glipizide 10 mg tablet extended release 24hr See Rx Instructions .ROUTE .COMPLEX Qty: 90 1RF Dose Instruction: TAKE ONE TABLET BY MOUTH EVERY DAY Rx Instructions: TAKE ONE TABLET BY MOUTH EVERY DAY aspirin 81 mg tablet,delayed release (DR/EC) See Rx Instructions .ROUTE .COMPLEX Qty: 90 1RF Dose Instruction: TAKE 1 TABLET BY MOUTH ONCE DAILY Rx Instructions: TAKE 1 TABLET BY MOUTH ONCE DAILY lisinopril-hydrochlorothiazide 20-25 mg tablet See Rx Instructions .ROUTE .COMPLEX Qty: 90 1RF Dose Instruction: TAKE 1 TABLET BY MOUTH ONCE DAILY FOR BLOOD PRESSURE Rx Instructions: TAKE 1 TABLET BY MOUTH ONCE DAILY FOR BLOOD PRESSURE omeprazole 40 mg capsule,delayed release(DR/EC) See Rx Instructions .ROUTE .COMPLEX Qty: 90 1RF Dose Instruction: TAKE 1 CAPSULE BY MOUTH DAILY FOR GERD Rx Instructions: TAKE 1 CAPSULE BY MOUTH DAILY FOR GERD (DME) blood-glucose meter 1 EACH [facility] [place] See Rx Instructions .Route .COMPLEX Rx Instructions: DIRECTED Referrals Follow up/Referrals: Nancy Mendes PA [Primary Care Provider] - See instructions Javi Currie DO [Staff Physician] - See instructions Activity Restrictions/Add. Instructions Additional Instructions/Restrictions: Call back this evening for x-ray results. Make a follow up appointment with Dr. Currie. Clinical Impressions Clinical Impression: Acute shoulder pain due to trauma Qualifiers: Laterality: right Qualified Code(s): M25.511 - Pain in right shoulder Instructions Patient Instructions: DI for Shoulder Pain Discharge ED Provider: Mahogany Alatorre [facility] [place] HPI General Stated complaint: shoulder pain Mode of Arrival: Ambulatory Source of Information: Patient Limitations: No Limitations Time Seen by Provider: 03/06/24 11:32 Description of Symptoms (Recalled from Triage Doc. by RN): PATIENT C/O RIGHT SHOULDER PAIN AFTER FALLING ON IT WHILE MOWING THE YARD YESTERDAY AFTERNOON. PATIENT REPORTS INCREASED PAIN WITH ABDUCTION AND STATES HE CANNOT RAISE HIS ARM ABOVE HIS HEAD. HEENT Symptoms (Recalled from RN notes): No Resp Symptoms (Recalled from RN notes): No Skin Symptoms (Recalled from RN notes): No MS Symptoms (Recalled from RN notes): Yes Functional Status (Recalled from RN notes): WNL History of Present Illness Provider Complaint: Pt reports that he was mowing his lawn and slipped and fell striking his right shoulder. Pt states that he can't raise his arm or move much due to pain. Related Data Home Medications Medication Instructions Recorded Confirmed blood-glucose meter 03/18/21 03/06/24 Previous Rx's Medication Instructions Recorded pen needle, diabetic 31 gauge x #50 ea 10/12/2209/27 (Comfort EZ Pen [place]) aspirin 81 mg tablet,delayed See Rx Instructions .Route 01/25/24 release .COMPLEX #90 tabs atorvastatin 10 mg tablet See Rx Instructions .Route 01/25/24 .COMPLEX #90 ea glipizide 10 mg tablet, extended See Rx Instructions .Route 01/25/24 release 24 hr .COMPLEX #90 tabs lisinopril 20 See Rx Instructions .Route 01/25/24 mg-hydrochlorothiazide 25 mg tablet .COMPLEX #90 tabs omeprazole 40 mg capsule,delayed See Rx Instructions .Route 01/25/24 release .COMPLEX #90 caps gabapentin 400 mg capsule 400 mg PO BID #60 caps 02/28/24 semaglutide 0.25 mg or 0.5 mg (2 0.25 mg (0.368 mL) SQ WEEKLY #3 mL 02/28/24 mg/3 mL) subcutaneous pen injector (Ozempic) ibuprofen 800 mg tablet 800 mg PO Q8H PRN pain #30 tabs 03/06/24 Allergies Allergy/AdvReac Type Severity Reaction Status Date / Time Penicillins [PENICILLINS] Allergy Unknown Verified 02/28/24 09:36 Worker's Comp Is this a Worker's Comp case?: No [facility] Disclaimer: The information contained in this section may have been updated after the patient was seen, as this information can be updated by other users. Medical History RLS (restless legs syndrome) Right-sided low back pain with sciatica Shoulder injury Vitamin D deficiency Diabetes mellitus GERD (gastroesophageal reflux disease) Restless leg syndrome Hypertension Social History Smoking Status: Never smoker second hand exposure: No alcohol intake: never substance use type: denies use current occupational status: other Travel in the last 8 weeks: None household members: spouse and children housing: house caffeine: Yes ROS Obtained: Yes All systems reviewed & no additional complaints except as documented Constitutional Constitutional: Reports system reviewed and no additional complaints, except as documented Eyes Eyes: Reports system reviewed and no additional complaints, except as documented ENT Ears, Nose, Mouth, and Throat: Reports system reviewed and no additional complaints, except as documented Cardiovascular Cardiovascular: Reports system reviewed and no additional complaints, except as documented Respiratory Respiratory: Reports system reviewed and no additional complaints, except as documented Gastrointestinal Gastrointestingal: Reports system reviewed and no additional complaints, except as documented Genitourinary Male Genitourinary: Reports system reviewed and no additional complaints, except as documented Musculoskeletal Musculoskeletal: Reports system reviewed and no additional complaints, except as documented, Reports arthralgias, Reports limited range of motion and Reports radiating pain into limb Integumentary/Breasts Skin/Breast: Reports system reviewed and no additional complaints, except as documented Neurologic Neurologic: Reports system reviewed and no additional complaints, except as documented Endocrine Endocrine: Reports system reviewed and no additional complaints, except as documented Hematologic/Lymphatic Henatologic/Lymphatic: Reports system reviewed and no additional complaints, except as documented Allergic/Immunologic Allergic/Immunologic: Reports system reviewed and no additional complaints, except as documented Physical Exam General General appearance: alert Comment: appears in pain Head Head exam: atraumatic and normocephalic Eye Eye exam: Present normal appearance ENT ENT exam: Present normal exam and normal oropharynx Neck Neck exam: Present normal inspection Chest Chest inspection: Present normal inspection and symmetric chest wall rise Respiratory Respiratory exam: Present normal lung sounds bilaterally Cardiovascular Cardiovascular exam: Present regular rate and normal rhythm Abdominal Exam Abdominal exam: Present soft and normal bowel sounds Extremities Exam Extremities exam: Present tenderness Expanded Upper Extremity Exam Right: Shoulder exam: Present tenderness, tenderness over AC joint and other (right shoulder lies lower than the left.) Arm exam: Present normal inspection Elbow exam: Present normal inspection Forearm/Wrist exam: Present normal inspection Hand exam: Present normal inspection Vascular exam: Normal capillary refill Back Exam Back exam: Present normal inspection Neurological Exam Neurological exam: Present alert and oriented X3 Psychiatric Psychiatric exam: Present normal affect and normal mood Skin Skin exam: Present warm, dry and intact Lymphatic Lymphatic Findings: no adenopathy Medical Decision Making Hair Inquiry Pt receiving controlled substance: No Hair was queried for this patient: No Vital Signs: 03/06/24 11:20 Temperature 99.3 F Temperature Source Oral Pulse Rate [Left Brachial] 84 Respiratory Rate 18 Blood Pressure [Left Arm] 142/89 H Blood Pressure Mean [Left Arm] 106 Blood Pressure Source [Left Arm] Automatic Cuff Blood Pressure Position [Left Arm] Sitting 02 Sat by Pulse Oximetry 96 Oxygen Delivery Method Room Air Orders (Tests/Meds): ORDERS Category Date Time Status Shoulder XR right miminum 2 views [XR shoulder RT min Exams 03/06/24 11:25 Taken 2V] Stat Radiology Data #1: Image(s): Shoulder Image Reviewed: Yes I reviewed the patient's radiology results and Yes I have reviewed radiologist's interpretation Findings: Three views were obtained. There is no acute fracture or dislocation. There are mild degenerative changes of the AC and glenohumeral joints. Calcification is noted adjacent to the humeral head, may represent calcific tendinitis. Impression: Findings may represent calcific tendinitis. Degenerative changes as above. Procedures Miscellaneous Procedure Procedure Performed: Pt was given 800mg of Ibuprofen at 12:35 pm for pain. He did not wish a Toradol shot. Pt wishes to go home and call back for x-ray results.
[2024-03-06] MEDS: IBUPROFEN 400 MG TABLET 800 MG PO (12:35)
[2024-03-06 12:39] VITALS: BP 142/89; PULSE 84; RESP 18; TEMP 37.4; O2SAT 96
== END 2024-03-06 12:43 | disposition home or self-care (01) ==
PROVIDERS: Emergency Provider Nurse Practitioner Family; PCP Physician Assistant
DX: M25.511 Pain in right shoulder (principal); W01.10XA Fall on same level from slipping, tripping and stumbling with subsequent striking against unspecified object, initial encounter
CPT/HCPCS: 73030; 99212; 99214; G0463

== ENCOUNTER 2024-05-29 15:49 | Outpatient (CLI) | payer MEDICAID, SELFPAY ==
--- NOTE | 2024-05-29 15:50 | MR_ITS ---
FINAL REPORT CLINICAL HISTORY: right shoulder pain, fall, limited rom FINDINGS: Multiplanar MR imaging of the right shoulder was performed without contrast. A high-grade full-thickness tear is seen of the distal supraspinatus tendon. A small portion of the anterior tendon appears to be intact. Also noted is a full-thickness tear of the anterior distal infraspinatus tendon. The a.c. joint is intact. Moderate fluid is seen in the subacromial/subdeltoid bursa. The glenoid labrum is intact. The long head of the biceps tendon is intact. A small glenohumeral joint effusion is seen. There is no evidence of fracture or dislocation. The musculature is intact. Several subchondral cysts are seen in the superior humeral head. IMPRESSION: High-grade full-thickness tear of the distal supraspinatus tendon and full-thickness tear of the anterior distal infraspinatus tendon. Mild degenerative changes. Authenticated and ERN
== END 2024-05-29 23:59 | disposition home or self-care (01) ==
LOC: RAD 15:50
PROVIDERS: PCP Student in an Organized Health Care Education/Training Program; Visit Provider Physician Assistant
DX: M67.911 Unspecified disorder of synovium and tendon, right shoulder (principal)
CPT/HCPCS: 73221

== ENCOUNTER 2025-01-22 16:10 | Emergency (ER) | payer SELFPAY ==
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
[2025-01-22 16:15] VITALS: BP 174/107; PULSE 82; RESP 16; TEMP 36.7; O2SAT 96; BMI 39.1
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
[2025-01-22] MEDS: IBUPROFEN 800 MG TABLET PO (16:38)
[2025-01-22] MEDS: ACETAMINOPHEN 500MG TAB 1000 MG PO (16:38)
[2025-01-22 18:18] VITALS: BP 148/103; PULSE 85; RESP 20; TEMP 36.8; O2SAT 98
== END 2025-01-22 18:18 | disposition home or self-care (01) ==
PROVIDERS: Emergency Provider Emergency Medicine; PCP Physician Assistant
DX: M54.6 Pain in thoracic spine (principal); M54.2 Cervicalgia; V49.40XA Driver injured in collision with unspecified motor vehicles in traffic accident, initial encounter
CPT/HCPCS: 72125; 72128; 72131; 99285

== ENCOUNTER 2025-04-30 18:25 | Outpatient (CLI) | payer MEDICAID, SELFPAY ==
[2025-04-30 20:29] LABS: Influenza A, PCR Not Detected (NotDetected); Influenza B, PCR Not Detected (NotDetected)
[2025-04-30 23:59] LABS: Coronavirus 19, PCR Detected (NotDetected)
--- OUTSIDE RECORDS SUMMARY | 2025-05-01 09:59 | XMS_ITS | Clinical Summary ---
Author Organization [facility] Address [address] [place] [address] Phone Care Team Providers Care Fish Cleaner Name Role Phone Unavailable Primary Care Provider Unavailabl e Allergies Active Allergy Reactions Criticality Noted Date Comments Penicillins 10/05/2011 Pt states mom allergic and he doesn't want it Medications lisinopril-hydro chlorothiazide (PRINZIDE;ZESTOR ETIC) 20-25 mg per tablet Take 1 Tab by mouth daily. Active aspirin 81 mg Oral Tablet, Chewable Take 81 mg by mouth daily. Active metFORMIN (GLUCOPHAGE) 500 mg Oral Tablet Take 500 mg by mouth 2 times daily. Active pantoprazole (PROTONIX) 20 mg Oral Tablet, Delayed Release (E.C.) Take 40 mg by mouth daily. Active Medical History Medical History Date Comments Hypertension Diabetes mellitus (HCC) Social History Tobacco Use Types Packs/Day Years Used Date Smoking Tobacco: Never Smokeless Tobacco: Never Alcohol Use Standard Drinks/Week Comments No 0 (1 standard drink = 0.6 oz pur e alcohol) Sexually Active Control Partners Comments Yes Female Sex and Gender Information Value Date Recorded Sex Assigned at Not on file Legal Sex Male 5:13 AM EDT Gender Identity Not on file Sexual Orientation Not on file Obstetrics History Last Filed Vital Signs Vital Sign Reading Time Taken Comments Blood Pressure 126/80 02/24/2019 9:57 AM EDT Pulse 76 02/24/2019 9:57 AM EDT Temperature 36.6 C (97.9 F) 02/24/2019 9:57 AM EDT Respiratory Rate 16 02/24/2019 9:57 AM EDT Oxygen Saturation 99% 02/24/2019 9:57 AM EDT Inhaled Oxygen Concentration - - Weight 113.4 kg (250 lb) 02/24/2019 9:57 AM EDT Height 172.7 cm (5' 8 ) 02/24/2019 9:57 AM EDT Body Mass Index 38.01 02/24/2019 9:57 AM EDT Plan of Treatment Health Maintenance Due Date Last Done Comments Annual Wellness Exam 1971 DTaP/TDaP/Td (1 - Tdap) 1987 Hepatitis B Vaccine (1 of 3 - + 3-dose series) 1987 Cologuard 2013 Colon Cancer Screening 2013 Colonoscopy 2013 FIT 2013 Sigmoidoscopy 2013 Virtual Colonography 2013 Pneumococcal Vaccine 50+ (1 of 1 - PCV) 2018 Zoster (1 of 2) 2018 COVID-19 Vaccine (1 - 2023-2 5 season) 2024 Influenza Vaccine (#1) 2025 Meningococcal B Vaccine Aged Out No l onger eligible based on patient's age to complete this topic
--- OUTSIDE RECORDS SUMMARY | 2025-05-01 09:59 | XMS_ITS | Referral Summary ---
Author Organization [facility] Address [address] [place], [place] [address] [address] [place] [address] Phone Care Team Providers Care Tip Printer Name Role Phone Juan Branch MD Primary Care Provider Social History Tobacco Use Types Packs/Day Years Used Date Smoking Tobacco: Never Assessed Sex and Gender Information Value Date Recorded Sex Assigned at Not on file Legal Sex Male 7:52 AM EST Gender Identity Not on file Sexual Orientation Not on file Plan of Treatment Not on file Care Teams Tip Printer Relationship Specialty Start Date End Date Juan Branch MD PCP - General Internal Medicine 12/22/13
--- OUTSIDE RECORDS SUMMARY | 2025-05-01 09:59 | XMS_ITS | Clinical Summary ---
Author Organization [facility] Address [address] [place] [address] [place] [address] Phone Care Team Providers Care Weatherization Technician Name Role Phone Juan Branch MD Primary Care Provider Social History Tobacco Use Types Packs/Day Years Used Date Smoking Tobacco: Never Assessed Sex and Gender Information Value Date Recorded Sex Assigned at Not on file Legal Sex Male 7:52 AM EST Gender Identity Not on file Sexual Orientation Not on file Plan of Treatment Health Maintenance Due Date Last Done Comments DTap,Tdap,and Td (1 - Tdap) 1979 Colonoscopy 2013 PSA YEARLY 2018 Pneumococcal 50+ (1 of 1 - PCV) 2018 Shingrix (#1) 2018 Influenza Vaccine (#1) 2025 RSV Vaccine (60+ or ) (1 - 1-dose 75+ series) 2043 HPV Aged Out No longer eligi ble based on patient's age to complete this topic Meningococcal conjugate zunilda nt 4 (MCV4) Aged Out No longer eligible b ased on patient's age to complete this topic RSV Immunization (<20 months) Aged Out No longer eligible based on patient's age to complete this topic Care Teams Weatherization Technician Relationship Specialty Start Date End Date Juan Branch MD PCP - General Internal Medicine 12/22/13
== END 2025-04-30 23:59 | disposition home or self-care (01) ==
LOC: LAB.DROPOF 05-01 09:58
PROVIDERS: PCP Student in an Organized Health Care Education/Training Program; Visit Provider Student in an Organized Health Care Education/Training Program
DX: J06.9 Acute upper respiratory infection, unspecified (principal)
CPT/HCPCS: 87631